=== PATIENT | male | born 1945 | race Caucasian/White ===

== ENCOUNTER 2024-09-22 22:04 | Emergency (ER) | payer MEDICARE ==
[2024-09-22 22:44] LABS: BASOPHILS ABSOLUTE AUTO 0.02 10^3/uL (0.00-0.10); BASOPHILS PERCENT AUTO 0.3 % (0.0-1.0); EOSINOPHILS ABSOLUTE AUTO 0.31 10^3/uL (0.10-0.30); EOSINOPHILS PERCENT AUTO 4.2 % (1.0-3.0); HEMATOCRIT 33.3 % (40.0-52.0); HEMOGLOBIN 11.3 g/dL (13.0-17.0); IMMATURE GRAN ABSOLUTE AUTO 0.02 10^3/uL (0.00-0.04); IMMATURE GRAN PERCENT AUTO 0.3 % (0.0-0.4); LYMPHOCYTES ABSOLUTE AUTO 0.83 10^3/uL (1.00-4.00); LYMPHOCYTES PERCENT AUTO 11.2 % (20.0-40.0); MEAN CORPUSCULAR HEMOGLOBIN 33.9 pg (27.0-31.0); MEAN CORPUSCULAR HGB CONC 33.9 g/dL (32.0-36.0); MONOCYTES ABSOLUTE AUTO 0.88 10^3/uL (0.10-0.80); MONOCYTES PERCENT AUTO 11.9 % (2.0-8.0); NEUTROPHILS ABSOLUTE AUTO 5.34 10^3/uL (2.50-7.00); NEUTROPHILS PERCENT AUTO 72.1 % (50.0-70.0); PLATELET COUNT,PLT 153 10^3/uL (150-400); RED BLOOD CELL COUNT 3.33 10^6/uL (4.50-6.00); RED CELL DISTRIBUTION WIDTH 16.9 % (11.5-14.5)
[2024-09-22 22:45] LABS: ALBUMIN 2.25 g/dL (3.40-5.00); ANION GAP 12.7 mmol/L (5-15); C-REACTIVE PROTEIN 9.95 mg/dL (0.00-0.50); CALCIUM 8.9 mg/dL (8.7-10.3); CARBON DIOXIDE,CO2 29.3 mmol/L (21.0-32.0); CREATININE 1.3 mg/dL (0.51-1.17); EST CRCL DRUG DOSING (CG) 50.57 mL/min; PROTEIN TOTAL,TP 7.2 g/dL (6.4-8.2)
[2024-09-22] MEDS: methylPREDNISolone Sodium Succinate 125 MG/2 ML SDV IVPUSH ONE (22:51)
[2024-09-22] MEDS: Cyclobenzaprine 10 MG Tab PO ONE (22:52)
== END 2024-09-23 02:11 ==
LOC: KA.ED 22:04
DX: S22.089A Unspecified fracture of T11-T12 vertebra, initial encounter for closed fracture (principal); Z91.018 Allergy to other foods; Z79.01 Long term (current) use of anticoagulants; Z79.82 Long term (current) use of aspirin; Z79.899 Other long term (current) drug therapy; X58.XXXA Exposure to other specified factors, initial encounter
CPT/HCPCS: 36415; 72070; 72100; 80053; 85025; 86140; 96374; 99285; A9270; J2919; 99284